=== PATIENT | male | born 1980 | race Caucasian/White ===

== ENCOUNTER 2020-08-13 23:07 | Emergency (ER) | payer MEDICAID ==
--- NOTE | 2020-08-13 23:09 | NUR ---
PT REFUSE TO BE TRAIGE AND WANTS TO LEAVE UPON ARRIVAL TO ER. PT [id number].
== END 2020-08-13 23:19 | disposition home or self-care (01) ==
LOC: ER 23:10
DX: Z53.21 Procedure and treatment not carried out due to patient leaving prior to being seen by health care provider (principal)